=== PATIENT | male | born 1975 | race Caucasian/White ===

== ENCOUNTER 2019-01-06 18:39 | Emergency (ER) | payer MEDICAID ==
--- NOTE | 2019-01-06 19:44 | Emergency Department Record ---
History of Present Illness - General Chief Complaint: General Stated Complaint: OUT OF MEDS Time Seen by Provider: 01/06/19 18:48 Source: Patient Mode of Arrival: Ambulatory Limitations: No limitations - History of Present Illness Initial comments: pt is out of effexor for several days and is starting to have symptoms. he just moved here from [place]. he is going to see dr saleem but has not got in yet. he has been on the effexor for 4 years -: Days(s) Consistency: Getting worse Associated Symptoms: Malaise, Other (myalgias) - Nimesh Coma Scale Eye Response: (4) Open spontaneously Motor Response: (6) Obeys commands Verbal Response: (5) Oriented Nimesh Total: 15 - Related Data Home Medications Medication Instructions Recorded Confirmed Last Taken Aspirin [Aspir-Low] 1 tab PO DAILY 01/06/19 01/06/19 01/06/19 Carbamazepine [Carbamazepine ER] 300 mg PO BID 01/06/19 01/06/19 01/06/19 Cyclobenzaprine HCl [Flexeril] 10 mg PO ASDIR PRN 01/06/19 01/06/19 Unknown Ibuprofen [Motrin] 800 mg PO Q8H PRN 01/06/19 01/06/19 01/04/19 Nitroglycerin 0.4MG [Nitrostat 1 tab PO ASDIR 01/06/19 01/06/19 Unknown 0.4MG] Venlafaxine HCl [Venlafaxine HCl 150 mg PO DAILY 01/06/19 01/06/19 01/04/19 ER] Previous Rx's Medication Instructions Recorded Venlafaxine HCl [Effexor Xr] 150 mg PO DAILY #20 cap.er 01/06/19 Allergies Allergy/AdvReac Type Severity Reaction Status Date / Time Penicillins Allergy RASH Verified 01/06/19 19:16 Travel Screening - Travel/Exposure Within Last 30 Days Have you traveled within the last 30 days?: Yes Location Detail:: [place] - Travel/Exposure Within Last Year Have you traveled outside the [place] in the last year?: Yes Location Detail:: [place] - Additonal Travel Details Have you been exposed to anyone with a communicable illness?: No - Travel Symptoms Symptom Screening: None Review of Systems Reviewed: No additional complaints except as noted below Constitutional: Reports: As per HPI, Malaise. Denies: Chills, Fever, Night sweats, Weakness, Weight change Eyes: Reports: As per HPI. Denies: Eye discharge, Eye pain, Photophobia, Vision change ENT: Reports: As per HPI. Denies: Congestion, Dental pain, Ear pain, Epistaxis, Hearing loss, Throat pain Respiratory: Reports: As per HPI. Denies: Cough, Dyspnea, Hemoptysis, Stridor, Wheezes Cardiovascular: Reports: As per HPI. Denies: Arrhythmia, Chest pain, Dyspnea on exertion, Edema, Murmurs, Orthopnea, Palpitations, Paroxysmal nocturnal dyspnea, Rheumatic Fever, Syncope Endocrine: Reports: As per HPI. Denies: Fatigue, Heat or cold intolerance, Polydipsia, Polyuria Gastrointestinal: Reports: As per HPI. Denies: Abdominal pain, Constipation, Diarrhea, Hematemesis, Hematochezia, Melena, Nausea, Vomiting Genitourinary: Reports: As per HPI. Denies: Dysuria, Frequency, Hematuria, Incontinence, Retention, Testicular pain, Testicular mass, Urgency Musculoskeletal: Reports: As per HPI, Myalgia. Denies: Arthralgia, Back pain, G out, Joint swelling, Neck pain Skin: Reports: As per HPI. Denies: Bruising, Change in color, Change in hair/nails, Lesions, Pruritus, Rash Neurological: Reports: As per HPI. Denies: Abnormal gait, Confusion, Headache, Numbness, Paresthesias, Seizure, Tingling, Tremors, Vertigo, Weakness Psychiatric: Reports: As per HPI. Denies: Anxiety, Auditory hallucinations, Depression, Homicidal thoughts, Suicidal thoughts, Visual hallucinations Hematological/Lymphatic: Reports: As per HPI. Denies: Anemia, Blood Clots, Easy bleeding, Easy bruising, Swollen glands Past Medical History - SOCIAL HISTORY Smoking Status: Current every day smoker Alcohol Use: Rare Drug Use: Rare Drug Use Detail:: Marijuana - RESPIRATORY Hx Respiratory Disorders: Yes Hx COPD: Yes - CARDIOVASCULAR Hx Cardio Disorders: Yes Hx Heart Attack: Yes (2016) - NEURO Hx TIA: Yes (2011) - GI Hx GI Disorders: No Hx Liver Disease: Yes (hep-c no viral count) - Hx Genitourinary Disorders: Yes Hx Kidney Stones: Yes - ENDOCRINE Hx Endocrine Disorders: No - MUSCULOSKELETAL Hx Musculoskeletal Disorders: Yes - PSYCH Hx Psych Problems: Yes Hx Depression: Yes Family Medical History Any Significant Family History?: No Physical Exam - General General Appearance: Alert, Oriented x3, Cooperative, No acute distress - Head Head exam: Normal inspection - Eye Eye exam: Normal appearance, PERRL, EOMI Pupils: Normal accommodation - ENT ENT exam: Normal exam, Mucous membranes moist, Normal external ear exam, Normal orophraynx Ear exam: Normal external inspection. negative: External canal tenderness Nasal Exam: Normal inspection. negative: Discharge, Sinus tenderness Mouth exam: Normal external inspection, Tongue normal Teeth exam: Normal inspection. negative: Dental caries Throat exam: Normal inspection. negative: Tonsillar erythema, Tonsillar exudate - Neck Neck exam: Normal inspection, Full ROM. negative: Tenderness - Respiratory Respiratory exam: Normal lung sounds bilaterally. negative: Respiratory distress - Cardiovascular Cardiovascular Exam: Regular rate, Normal rhythm, Normal heart sounds - GI/Abdominal GI/Abdominal exam: Soft, Normal bowel sounds. negative: Tenderness - Rectal Rectal exam: Deferred - exam: Deferred - Extremities Extremities exam: Normal inspection, Full ROM, Normal capillary refill. negative: Tenderness - Back Back exam: Reports: Normal inspection, Full ROM. Denies: Muscle spasm, Rash noted, Tenderness - Neurological Neurological exam: Alert, CN II-XII intact, Normal gait, Oriented X3 - Psychiatric Psychiatric exam: Normal affect, Normal mood - Skin Skin exam: Dry, Intact, Normal color, Warm Course Vital Signs 01/06/19 19:10 Temperature 98.1 F Pulse Rate [ 74 Pulse Ox Probe] Respiratory 20 Rate Blood Pressure 125/93 [Left Arm] Pulse Ox 98 Disposition Disposition: Discharge Clinical Impression: Has run out of medications Disposition: Home, Self-Care Condition: (1) Good Instructions: Adverse Drug Reaction (ED) Additional Instructions: follow up with dr stiven herrera. return sooner if worse. Prescriptions: Venlafaxine HCl [Effexor Xr] 150 mg PO DAILY #20 cap.er Quality - Quality Measures Quality Measures: N/A - Blood Pressure Screening Does Patient Have Any of the Following: No Blood Pressure Classification: Hypertensive Reading Systolic Measurement: 125 Diastolic Measurement: 93 Screening for High Blood Pressure: < Pre-Hypertensive BP, F/U Documented > [[id number]] Pre-Hypertensive Follow-up Interventions: Follow-up with rescreen every year.
[2019-01-06] MEDS ORDERED: VENLAFAXINE ER 75 MG CAPSULE PO SCH (19:45)
== END 2019-01-06 20:09 | disposition home or self-care (01) ==
LOC: ER 18:39
DX: Z76.0 Encounter for issue of repeat prescription (principal); R53.81 Other malaise; F32.9 Major depressive disorder, single episode, unspecified; J44.9 Chronic obstructive pulmonary disease, unspecified; I25.2 Old myocardial infarction; Z87.891 Personal history of nicotine dependence
CPT/HCPCS: 99281